=== PATIENT | female | born 1970 | race Caucasian/White ===

== ENCOUNTER 2020-04-12 22:17 | Inpatient (IN) | payer MEDICARE, MEDICAID ==
[~2020-04-12] VITALS: Ht 160 cm; Wt 79.4 kg
[~2020-04-12 22:17] MED LIST: ALBU05 NEB; ASPI-1497 PO; ATOR40TA70 PO; IBUP-2030 PO; LEVO125T8 PO; LORA2TAB2 PO; METF-414 PO; NAPR-681 PO; VENL75CA3 PO
[2020-04-12] MEDS ORDERED: NITROGLYCERIN 0.4MG TABLET SL SL PRN (22:45)
[2020-04-12] MEDS ORDERED: LABETALOL 5MG/ML SYR 20 MG/4 ML SYRINGE IV ONE (22:45)
[2020-04-12] MEDS ORDERED: IOHEXOL-350 100 ML BOTTLE ONE (23:30)
[2020-04-12 23:38] LABS: BASOPHILS % 0.4 % (0.0-2.0); EOSINOPHILS % 1.7 % (0.0-5.0); HEMATOCRIT. 37.5 % (36.0-48.0); HEMOGLOBIN. 12.9 g/dL (12.0-16.0); MEAN CORPUSCULAR HEMOGLOBIN 27.8 pg (28.0-32.0); MEAN CORPUSCULAR VOLUME 80.8 fL (81.0-99.0); MEAN PLATELET VOLUME 6.8 fl (7.4-10.4); NEUTROPHILS % 63.9 % (40.0-76.0); PLATELET 223 x1000/uL (130-400); RED BLOOD CELL COUNT 4.64 mill/uL (4.2-5.4)
[2020-04-12 23:45] LABS: CHLORIDE 111 mEq/L (98-107)
[2020-04-12 23:48] LABS: INR 0.9; PARTIAL THROMBOPLASTIN TIME 30.2 sec (23.4-31.0)
[2020-04-12 23:50] LABS: ETHANOL BLOOD < 10 mg/dL
[2020-04-12 23:53] LABS: LDL CHOLESTEROL 76 mg/dL (5-100)
[2020-04-13] MEDS ORDERED: ASPIRIN 325MG EC TABLET PO ONE (00:30)
[2020-04-13] MEDS ORDERED: HYDROCODONE/ACETAMINOPHEN 10/325MG TABLET PO SCH (04:30)
[2020-04-13] MEDS ORDERED: ACETAMINOPHEN 325MG TABLET PO PRN (08:00)
[2020-04-13] MEDS ORDERED: ONDANSETRON HCL 4MG/2ML INJ IV PRN (08:00)
[2020-04-13] MEDS: ENOXAPARIN 40MG/0.4ML SYR SUBCUT SCH (09:48)
[2020-04-13] MEDS ORDERED: KETOROLAC 30MG/ML VIAL IV NR (10:45)
[2020-04-13] MEDS ORDERED: KETOROLAC 30MG/ML VIAL IV PRN (10:45)
[2020-04-13 12:47] VITALS: BP 143/79
[2020-04-13 14:22] VITALS: BP 111/65
[2020-04-13 16:22] VITALS: BP 129/71
[2020-04-13 18:20] VITALS: BP 138/73
[2020-04-13 20:00] VITALS: BP 145/72
[2020-04-13] MEDS: HYDROCODONE/ACETAMINOPHEN 5/325MG TABLET PO PRN (21:34)
[2020-04-14] VITALS (7 sets, daily range): BP systolic 113–133; BP diastolic 39–73
[2020-04-14] MEDS: ASPIRIN 81MG TABLET PO SCH (08:22)
[2020-04-14] MEDS: ENOXAPARIN 40MG/0.4ML SYR SUBCUT SCH (08:22)
[2020-04-14 10:03] LABS: HEMATOCRIT 37.3 % (36.0-48.0); HEMOGLOBIN 12.4 g/dL (12.0-16.0); MEAN CORPUSCULAR VOLUME 81.2 fL (81.0-99.0); PLATELET 195 x1000/uL (130-400); RED CELL DISTRIBUTION WIDTH 13.8 % (11.6-14.6)
[2020-04-14 10:14] LABS: CHLORIDE 109 mEq/L (98-107)
[2020-04-14] MEDS: HYDROCODONE/ACETAMINOPHEN 5/325MG TABLET PO PRN ×2 (12:46→22:19)
[2020-04-14] MEDS: DIPHENHYDRAMINE 25MG CAPSULE PO PRN ×2 (13:01→22:17)
[2020-04-15] VITALS (10 sets, daily range): BP systolic 104–137; BP diastolic 59–85
[2020-04-15 06:41] LABS: BASOPHILS % 0.6 % (0.0-2.0); EOSINOPHILS % 3.1 % (0.0-5.0); HEMATOCRIT. 37.6 % (36.0-48.0); HEMOGLOBIN. 12.7 g/dL (12.0-16.0); LYMPHOCYTES % 35.8 % (20.0-50.0); MEAN CORPUSCULAR HEMOGLOBIN 27.4 pg (28.0-32.0); MEAN CORPUSCULAR VOLUME 81.2 fL (81.0-99.0); MEAN PLATELET VOLUME 7.5 fl (7.4-10.4); MONOCYTES % 8.4 % (2.0-8.0); NEUTROPHILS % 52.1 % (40.0-76.0); PLATELET 197 x1000/uL (130-400); RED BLOOD CELL COUNT 4.63 mill/uL (4.2-5.4); RED CELL DISTRIBUTION WIDTH 14.2 % (11.6-14.6)
[2020-04-15 06:52] LABS: CHLORIDE 108 mEq/L (98-107)
[2020-04-15] MEDS: ASPIRIN 81MG TABLET PO SCH (09:13)
[2020-04-15] MEDS: ENOXAPARIN 40MG/0.4ML SYR SUBCUT SCH (09:14)
[2020-04-15] MEDS: HYDROCODONE/ACETAMINOPHEN 5/325MG TABLET PO PRN (15:00)
[2020-04-15] MEDS: DIPHENHYDRAMINE 25MG CAPSULE PO PRN (15:03)
[2020-04-15] MEDS: ATORVASTATIN CALCIUM 10MG TABLET PO SCH (20:55)
[2020-04-16] VITALS (10 sets, daily range): BP systolic 117–157; BP diastolic 72–100
[2020-04-16] MEDS: LORAZEPAM 1MG TABLET PO PRN ×2 (00:38→21:06)
[2020-04-16 07:39] LABS: BASOPHILS % 0.2 % (0.0-2.0); EOSINOPHILS % 2.2 % (0.0-5.0); HEMATOCRIT. 38.1 % (36.0-48.0); HEMOGLOBIN. 12.7 g/dL (12.0-16.0); LYMPHOCYTES % 27.9 % (20.0-50.0); MEAN CORPUSCULAR HEMOGLOBIN 27.1 pg (28.0-32.0); MEAN CORPUSCULAR VOLUME 81.5 fL (81.0-99.0); MEAN PLATELET VOLUME 7.4 fl (7.4-10.4); MONOCYTES % 7.2 % (2.0-8.0); NEUTROPHILS % 62.5 % (40.0-76.0); PLATELET 196 x1000/uL (130-400); RED BLOOD CELL COUNT 4.68 mill/uL (4.2-5.4); RED CELL DISTRIBUTION WIDTH 13.5 % (11.6-14.6)
[2020-04-16 07:42] LABS: CHLORIDE 107 mEq/L (98-107)
[2020-04-16] MEDS: ASPIRIN 81MG TABLET PO SCH (10:31)
[2020-04-16] MEDS: CITALOPRAM HYDROBROMIDE 10MG TABLET PO SCH (10:31)
[2020-04-16] MEDS: ENOXAPARIN 40MG/0.4ML SYR SUBCUT SCH (10:48)
[2020-04-16] MEDS: BUTALBITAL/ACETAMINOPHEN/CAFFEINE 50/325/40MG TABLET PO PRN (15:21)
[2020-04-16] MEDS: DIPHENHYDRAMINE 25MG CAPSULE PO PRN (20:04)
[2020-04-16] MEDS: HYDROCODONE/ACETAMINOPHEN 5/325MG TABLET PO PRN (20:04)
[2020-04-16] MEDS: ATORVASTATIN CALCIUM 10MG TABLET PO SCH (21:06)
[2020-04-17] VITALS (10 sets, daily range): BP systolic 113–141; BP diastolic 55–92
[2020-04-17 07:07] LABS: BASOPHILS % 0.5 % (0.0-2.0); EOSINOPHILS % 2.2 % (0.0-5.0); HEMATOCRIT. 37.5 % (36.0-48.0); HEMOGLOBIN. 12.8 g/dL (12.0-16.0); LYMPHOCYTES % 29.4 % (20.0-50.0); MEAN CORPUSCULAR HEMOGLOBIN 27.3 pg (28.0-32.0); MEAN CORPUSCULAR VOLUME 80.3 fL (81.0-99.0); MEAN PLATELET VOLUME 7.2 fl (7.4-10.4); MONOCYTES % 7.1 % (2.0-8.0); NEUTROPHILS % 60.8 % (40.0-76.0); PLATELET 197 x1000/uL (130-400); RED BLOOD CELL COUNT 4.67 mill/uL (4.2-5.4); RED CELL DISTRIBUTION WIDTH 13.4 % (11.6-14.6)
[2020-04-17 07:20] LABS: CHLORIDE 108 mEq/L (98-107)
[2020-04-17 07:34] LABS: CREATINE KINASE 39 IU/L (26-192); T4 FREE 0.53 ng/dL (0.76-1.46)
[2020-04-17] MEDS: CITALOPRAM HYDROBROMIDE 10MG TABLET PO SCH (08:10)
[2020-04-17] MEDS: ASPIRIN 81MG TABLET PO SCH (08:10)
[2020-04-17] MEDS: ENOXAPARIN 40MG/0.4ML SYR SUBCUT SCH (08:10)
[2020-04-17 08:19] LABS: FOLIC ACID (FOLATE) SERUM > 20.00 ng/mL (>5.38); VITAMIN B12 SERUM > 2000.0 pg/mL (211-911)
[2020-04-17] MEDS ORDERED: LEVOTHYROXINE SODIUM 75MCG TABLET PO SCH (11:15)
[2020-04-17] MEDS: ATORVASTATIN CALCIUM 10MG TABLET PO SCH (20:05)
[2020-04-17] MEDS: BUTALBITAL/ACETAMINOPHEN/CAFFEINE 50/325/40MG TABLET PO PRN (20:08)
[2020-04-18 08:07] LABS: ESTRADIOL < 5.0 pg/mL (.); FOLICLE STIMULATING HORMONE 95.4 mIU/mL (.); LUTEINIZING HORMONE 51.8 mIU/mL (.); PROLACTIN 37.7 ng/mL (4.8-23.3); THYROID PEROXIDASE ANTIBODY < 9 IU/mL (0-34)
[2020-04-18] MEDS ORDERED: MULTIVITAMINS,THER W-MINERALS TABLET PO SCH (09:00)
[2020-04-18 13:06] LABS: C-PEPTIDE 2.3 ng/mL (1.1-4.4); INSULIN 5.4 uIU/mL (2.6-24.9)
[2020-04-20 13:10] LABS: PRO INSULIN 2.8 pmol/L (0.0-10.0)
[2020-04-21 17:07] LABS: 25-HYDROXY VITAMIN D3 33 ng/mL (.)
[2020-04-26] MEDS ORDERED: ASPI-1160 PO (17:31)
[2020-04-26] MEDS ORDERED: BISA10SU62 RC (17:31)
[2020-04-26] MEDS ORDERED: LEVO100T9 PO (17:31)
[2020-04-26] MEDS ORDERED: NAPR-681 PO (17:31)
[2020-04-26] MEDS ORDERED: DOCU250C14 MT (17:31)
== END 2020-04-17 22:07 | DRG 206 ==
LOC: ER 22:17 → 3WST 04-13 00:39 → ENRESERV 04-13 11:18
PROVIDERS: ADMIT Internal Medicine; ATTEND Internal Medicine
PROC: 4A00X4Z Measurement of Central Nervous Electrical Activity, External Approach (ICD-10-PCS; principal; 2020-04-17)
DX: M94.0 Chondrocostal junction syndrome [Tietze] (principal); G45.9 Transient cerebral ischemic attack, unspecified; G81.94 Hemiplegia, unspecified affecting left nondominant side; E11.9 Type 2 diabetes mellitus without complications; D72.819 Decreased white blood cell count, unspecified; E03.9 Hypothyroidism, unspecified; E66.9 Obesity, unspecified; E78.5 Hyperlipidemia, unspecified; E87.8 Other disorders of electrolyte and fluid balance, not elsewhere classified; F32.9 Major depressive disorder, single episode, unspecified; F41.9 Anxiety disorder, unspecified; G43.109 Migraine with aura, not intractable, without status migrainosus; I10 Essential (primary) hypertension; J45.909 Unspecified asthma, uncomplicated; K59.00 Constipation, unspecified; E78.00 Pure hypercholesterolemia, unspecified; Z20.822 Contact with and (suspected) exposure to COVID-19; Z86.73 Personal history of transient ischemic attack (TIA), and cerebral infarction without residual deficits; Z90.49 Acquired absence of other specified parts of digestive tract; Z98.1 Arthrodesis status; Z88.1 Allergy status to other antibiotic agents; Z88.8 Allergy status to other drugs, medicaments and biological substances; Z79.84 Long term (current) use of oral hypoglycemic drugs; Z79.82 Long term (current) use of aspirin; Z79.899 Other long term (current) drug therapy; Z79.890 Hormone replacement therapy; Z68.31 Body mass index [BMI] 31.0-31.9, adult
CPT/HCPCS: 36415; 70496; 70498; 70551; 71045; 72141; 80048; 80053; 80320; 82024; 82306; 82533; 82550; 82607; 82670; 82746; 82947; 82962; 83001; 83002; 83036; 83525; 83721; 83880; 84146; 84206; 84439; 84443; 84480; 84484; 84681; 85025; 85027; 86376; 87426; 93005; 93306; 95816; 96374; 97116; 97163; 97166; 97530; 97535; 99291; J1650; J1885; J2405; J3490; Q0163; Q9967; G0480

== ENCOUNTER 2021-12-23 23:29 | Emergency (ER) | payer MEDICARE, MEDICAID ==
[~2021-12-23] VITALS: Ht 160 cm; Wt 81.0 kg
[~2021-12-23 23:29] MED LIST changes: +ASPI-1160 PO; +BISA10SU62 RC; +DOCU250C14 MT; +LEVO100T9 PO; -METF-414 PO
[2021-12-24] MEDS ORDERED: KETOROLAC 30MG/ML VIAL IV STA (04:22)
[2021-12-24] MEDS ORDERED: SODIUM CHLORIDE 0.9% 1,000 ML IV ONE (04:30)
[2021-12-24 05:01] LABS: BASOPHILS % 0.4 % (0.0-2.0); HEMATOCRIT. 41.8 % (36.0-48.0); HEMOGLOBIN. 13.5 g/dL (12.0-16.0); LYMPHOCYTES % 28.9 % (20.0-50.0); MEAN CORPUSCULAR HEMOGLOBIN 27.3 pg (28.0-32.0); MEAN CORPUSCULAR VOLUME 84.4 fL (81.0-99.0); MEAN PLATELET VOLUME 6.9 fl (7.4-10.4); NEUTROPHILS % 62.7 % (40.0-76.0); PLATELET 258 x1000/uL (130-400); RED BLOOD CELL COUNT 4.95 mill/uL (4.2-5.4); RED CELL DISTRIBUTION WIDTH 14.6 % (11.6-14.6)
[2021-12-24 05:10] LABS: CHLORIDE 109 mEq/L (98-107)
[2021-12-24] MEDS ORDERED: ONDANSETRON HCL 4MG/2ML INJ IV ONE (05:30)
[2021-12-24] MEDS ORDERED: MORPHINE SULFATE 4 MG/ML CPJ (NOT FOR IM USE) IV ONE (05:30)
[2021-12-24 07:13] LABS: CLARITY URINE CLEAR (CLEAR); COLOR URINE YELLOW (YELLOW); KETONES URINE NEGATIVE (NEGATIVE); LEUKOCYTE ESTERASE URINE 2+ (NEGATIVE); NITRITE URINE NEGATIVE (NEGATIVE); OCCULT BLOOD URINE TRACE (NEGATIVE); PH URINE 5.5 (4.5-8.0); PROTEIN URINE NEGATIVE (NEGATIVE); UROBILINOGEN URINE 0.2 E.U./dL (0.2-1.0)
[2021-12-24] MEDS ORDERED: SULF1TAB48 MT (07:22)
[2021-12-24] MEDS ORDERED: IBUP-2029 MT (07:22)
[2021-12-24] MEDS ORDERED: IBUP-2028 MT ×2 (07:22)
[2021-12-24] MEDS ORDERED: HYDR-4001 MT ×2 (07:22→07:29)
[2021-12-24 08:51] VITALS: BP 126/75
== END 2021-12-24 08:52 | disposition home or self-care (01) ==
LOC: ER 23:29
DX: N10 Acute pyelonephritis (principal); F32.A Depression, unspecified; E11.9 Type 2 diabetes mellitus without complications; E78.00 Pure hypercholesterolemia, unspecified; I10 Essential (primary) hypertension; Z90.49 Acquired absence of other specified parts of digestive tract; Z79.82 Long term (current) use of aspirin; Z88.3 Allergy status to other anti-infective agents
CPT/HCPCS: 36415; 74176; 80053; 81003; 81025; 83690; 85025; 96361; 96374; 96375; 99284; J1885; J2270; J2405; J7030

== ENCOUNTER 2022-01-01 21:16 | Emergency (ER) | payer MEDICARE, MEDICAID ==
[~2022-01-01] VITALS: Ht 160 cm; Wt 81.3 kg
[~2022-01-01 21:16] MED LIST changes: +HYDR-4001 MT; +IBUP-2029 MT; +SULF1TAB48 MT
[2022-01-02] MEDS ORDERED: ACETAMINOPHEN 325MG TABLET PO STA (03:56)
[2022-01-02] MEDS ORDERED: SODIUM CHLORIDE 0.9% 1,000 ML IV ONE (04:00)
[2022-01-02 04:37] LABS: BASOPHILS % 0.4 % (0.0-2.0); EOSINOPHILS % 2.5 % (0.0-5.0); HEMATOCRIT. 42.8 % (36.0-48.0); HEMOGLOBIN. 14.2 g/dL (12.0-16.0); LYMPHOCYTES % 30.8 % (20.0-50.0); MEAN CORPUSCULAR HEMOGLOBIN 28.2 pg (28.0-32.0); MONOCYTES % 5.4 % (2.0-8.0); NEUTROPHILS % 60.9 % (40.0-76.0); PLATELET 287 x1000/uL (130-400); RED BLOOD CELL COUNT 5.04 mill/uL (4.2-5.4); RED CELL DISTRIBUTION WIDTH 14.2 % (11.6-14.6)
[2022-01-02 04:39] LABS: CLARITY URINE CLOUDY (CLEAR); COLOR URINE YELLOW (YELLOW); KETONES URINE NEGATIVE (NEGATIVE); LEUKOCYTE ESTERASE URINE 2+ (NEGATIVE); NITRITE URINE NEGATIVE (NEGATIVE); OCCULT BLOOD URINE TRACE (NEGATIVE); PROTEIN URINE TRACE (NEGATIVE); SPECIFIC GRAVITY URINE 1.022 (1.005-1.030); UROBILINOGEN URINE 0.2 E.U./dL (0.2-1.0)
[2022-01-02 04:45] LABS: CHLORIDE 108 mEq/L (98-107)
[2022-01-02] MEDS ORDERED: KETOROLAC 15MG/ML VIAL IV NR (05:45)
[2022-01-02] MEDS ORDERED: CEPH500C2 MT (05:48)
[2022-01-02] MEDS ORDERED: BACL-141 MT (05:48)
[2022-01-02] MEDS ORDERED: IBUP-2029 MT (05:48)
[2022-01-02 06:00] VITALS: BP 135/63
[2022-01-02] MEDS ORDERED: CEPHALEXIN 250MG CAPSULE PO ONE (06:00)
[2022-01-02 06:14] LABS: HCG SCREEN NEGATIVE
== END 2022-01-02 06:22 | disposition home or self-care (01) ==
LOC: ER 21:16
DX: R10.31 Right lower quadrant pain (principal); R11.2 Nausea with vomiting, unspecified; F32.9 Major depressive disorder, single episode, unspecified; E11.9 Type 2 diabetes mellitus without complications; E78.00 Pure hypercholesterolemia, unspecified; I10 Essential (primary) hypertension; Z88.3 Allergy status to other anti-infective agents; Z88.8 Allergy status to other drugs, medicaments and biological substances; Z79.82 Long term (current) use of aspirin; Z90.49 Acquired absence of other specified parts of digestive tract; Z98.890 Other specified postprocedural states
CPT/HCPCS: 36415; 74176; 80053; 81003; 83690; 84703; 85025; 87086; 96361; 96374; 99284; J1885; J7030

== ENCOUNTER 2022-08-23 19:22 | Emergency (ER) | payer MEDICARE, MEDICAID ==
[~2022-08-23] VITALS: Ht 162.6 cm; Wt 76.7 kg
[~2022-08-23 19:22] MED LIST changes: +BACL-141 MT; +CEPH500C2 MT
[2022-08-23] MEDS ORDERED: SODIUM CHLORIDE 0.9% 1,000 ML IV ONE (20:15)
[2022-08-23] MEDS ORDERED: DIPHENHYDRAMINE 50MG/ML VIAL IV ONE (20:15)
[2022-08-23] MEDS ORDERED: METOCLOPRAMIDE HCL 10MG/2ML VIAL IV ONE (20:15)
[2022-08-23 20:17] LABS: CHLORIDE 110 mEq/L (98-107)
[2022-08-23 20:19] LABS: BASOPHILS % 0.5 % (0.0-2.0); EOSINOPHILS % 2.2 % (0.0-5.0); HEMATOCRIT. 41.6 % (36.0-48.0); LYMPHOCYTES % 27.7 % (20.0-50.0); MEAN CORPUSCULAR HEMOGLOBIN 28.3 pg (28.0-32.0); MEAN CORPUSCULAR VOLUME 83.9 fL (81.0-99.0); MEAN PLATELET VOLUME 7.2 fl (7.4-10.4); MONOCYTES % 6.8 % (2.0-8.0); NEUTROPHILS % 62.8 % (40.0-76.0); PLATELET 292 x1000/uL (130-400); RED BLOOD CELL COUNT 4.96 mill/uL (4.2-5.4); RED CELL DISTRIBUTION WIDTH 13.7 % (11.6-14.6)
[2022-08-23 20:27] LABS: ETHANOL BLOOD < 10 mg/dL; PROTHROMBIN TIME 10.3 sec (9.6-11.0)
[2022-08-23 20:48] LABS: CLARITY URINE CLEAR (CLEAR); COLOR URINE YELLOW (YELLOW); KETONES URINE NEGATIVE (NEGATIVE); LEUKOCYTE ESTERASE URINE NEGATIVE (NEGATIVE); NITRITE URINE NEGATIVE (NEGATIVE); OCCULT BLOOD URINE NEGATIVE (NEGATIVE); PH URINE 7.5 (4.5-8.0); PROTEIN URINE NEGATIVE (NEGATIVE); SPECIFIC GRAVITY URINE 1.054 (1.005-1.030); UROBILINOGEN URINE 0.2 E.U./dL (0.2-1.0)
[2022-08-23] MEDS ORDERED: ACET-2708 MT (20:55)
[2022-08-23] MEDS ORDERED: METO-293 MT (20:55)
[2022-08-23 20:59] LABS: *AMPHETAMINES SCREEN URINE NEGATIVE (NEGATIVE); *BARBITURATES SCREEN URINE NEGATIVE (NEGATIVE); *BENZODIAZEPINES SCREEN URINE NEGATIVE (NEGATIVE); *COCAINE SCREEN URINE NEGATIVE (NEGATIVE); CANNABINOID URINE SCREEN NEGATIVE (NEGATIVE); METHADONE URINE SCREEN NEGATIVE (NEGATIVE); OPIATES URINE SCREEN NEGATIVE (NEGATIVE); PHENCYCLIDINE URINE SCREEN NEGATIVE (NEGATIVE)
[2022-08-23 22:00] VITALS: BP 141/62
[2022-08-24] MEDS ORDERED: IOHEXOL-350 100 ML BOTTLE ONE (07:02)
== END 2022-08-23 22:30 | disposition home or self-care (01) ==
LOC: ER 19:22
DX: R51.9 Headache, unspecified (principal); F45.0 Somatization disorder; E78.00 Pure hypercholesterolemia, unspecified; E11.9 Type 2 diabetes mellitus without complications; I25.2 Old myocardial infarction; I10 Essential (primary) hypertension; Z88.1 Allergy status to other antibiotic agents; Z88.8 Allergy status to other drugs, medicaments and biological substances; Z79.899 Other long term (current) drug therapy; Z90.49 Acquired absence of other specified parts of digestive tract; Z86.73 Personal history of transient ischemic attack (TIA), and cerebral infarction without residual deficits
CPT/HCPCS: 36415; 70450; 70496; 70498; 71045; 80053; 80305; 80320; 81003; 82962; 84484; 85025; 85610; 93005; 96361; 96374; 96375; 99285; J1200; J2765; J7030; Q9967; G0480

== ENCOUNTER 2024-07-01 19:49 | Emergency (ER) | payer BC, MEDICAID ==
[~2024-07-01] VITALS: Ht 160 cm; Wt 63.0 kg
[~2024-07-01 19:49] MED LIST changes: +ACET-2708 MT; +METO-293 MT; -SULF1TAB48 MT; +TUSSL MT; -VENL75CA3 PO; +VENL75CA4 PO
[2024-07-01 19:53] VITALS: O2SAT 100
[2024-07-01 20:46] LABS: POTASSIUM 3.7 mEq/L (3.5-5.1)
[2024-07-01 20:47] LABS: CALCIUM 10.5 mg/dL (8.7-10.4)
[2024-07-01 20:48] LABS: BASOPHILS % 0.3 % (0.0-2.0); EOSINOPHILS % 0.8 % (0.0-5.0); HEMATOCRIT. 41.9 % (36.0-48.0); HEMOGLOBIN. 13.9 g/dL (12.0-16.0); LYMPHOCYTES % 11.5 % (20.0-50.0); MEAN CORPUSCULAR HEMOGLOBIN 27.7 pg (28.0-32.0); MEAN CORPUSCULAR HGB CONC 33.2 g/dL (31.0-37.0); MEAN CORPUSCULAR VOLUME 83.4 fL (81.0-99.0); MEAN PLATELET VOLUME 7.3 fl (7.4-10.4); MONOCYTES % 4.3 % (2.0-8.0); NEUTROPHILS % 83.1 % (40.0-76.0); PLATELET 253 x1000/uL (130-400); RED BLOOD CELL COUNT 5.02 mill/uL (4.2-5.4); RED CELL DISTRIBUTION WIDTH 12.9 % (11.6-14.6); WHITE BLOOD COUNT 8.9 x1000/uL (4.5-11.0)
[2024-07-01] MEDS: KETOROLAC 30MG/ML VIAL IV STA (22:38)
[2024-07-02] MEDS: KETOROLAC 15MG/ML VIAL IV ONE (01:09)
[2024-07-02 03:27] VITALS: BP 133/73; PULSE 78; RESP 14; TEMP 37; O2SAT 99
== END 2024-07-02 03:41 | disposition home or self-care (01) ==
LOC: ER 19:49
DX: I25.2 Old myocardial infarction (principal); I10 Essential (primary) hypertension; E11.9 Type 2 diabetes mellitus without complications; Z88.5 Allergy status to narcotic agent; Z79.82 Long term (current) use of aspirin; Z91.018 Allergy to other foods; Z88.1 Allergy status to other antibiotic agents; Z79.52 Long term (current) use of systemic steroids; Z90.49 Acquired absence of other specified parts of digestive tract; Z79.899 Other long term (current) drug therapy; Z86.39 Personal history of other endocrine, nutritional and metabolic disease
CPT/HCPCS: 99285; 70450; 80048; 85025; 36415; 93005; 96374; J1885

== ENCOUNTER 2025-03-28 12:58 | Emergency (ER) | payer BC, MEDICAID ==
[~2025-03-28] VITALS: Ht 160 cm; Wt 60.0 kg
[~2025-03-28 12:58] MED LIST changes: +IBUP-1455 MT; -IBUP-2029 MT
[2025-03-28 13:03] VITALS: O2SAT 99
[2025-03-28] MEDS ORDERED: IBUPROFEN 600MG TABLET PO NR (13:45)
[2025-03-28] MEDS ORDERED: KETOROLAC 15MG/ML VIAL IV ONE (15:45)
[2025-03-28] MEDS ORDERED: IBUPROFEN 600MG TABLET PO ONE (15:45)
[2025-03-28] MEDS ORDERED: KETOROLAC 15MG/ML VIAL IV NR (15:45)
[2025-03-28 16:00] LABS: BG DEOXYHEMOGLOBIN 20.1 % (0.0-5.0)
[2025-03-28 16:04] LABS: BASOPHILS % 0.4 % (0.0-2.0); EOSINOPHILS % 0.9 % (0.0-5.0); HEMATOCRIT. 39.2 % (36.0-48.0); HEMOGLOBIN. 12.9 g/dL (12.0-16.0); LYMPHOCYTES % 18.2 % (20.0-50.0); MEAN PLATELET VOLUME 6.7 fl (7.4-10.4); MONOCYTES % 2.7 % (2.0-8.0); NEUTROPHILS % 77.8 % (40.0-76.0); PLATELET 259 x1000/uL (130-400); RED BLOOD CELL COUNT 4.76 mill/uL (4.2-5.4); RED CELL DISTRIBUTION WIDTH 14.1 % (11.6-14.6)
[2025-03-28 16:24] LABS: CREATININE 0.8 mg/dL (0.6-1.0)
[2025-03-28 16:25] LABS: UREA NITROGEN BLOOD 11 mg/dL (9-23)
[2025-03-28 16:26] LABS: ASPARTATE AMINOTRANSFERASE 17 IU/L (<34); PROTEIN TOTAL 6.7 g/dL (6.0-8.3)
[2025-03-28 16:27] LABS: BILIRUBIN DIRECT 0.1 mg/dL (<=3.0); BILIRUBIN TOTAL 0.4 mg/dL (0.1-1.0)
[2025-03-28] MEDS ORDERED: METH-653 MT (17:26)
[2025-03-28] MEDS: LIDOCAINE 5% PATCH TOP SCH (17:35)
[2025-03-28] MEDS: METHOCARBAMOL 500MG TABLET PO ONE (17:36)
[2025-03-28] MEDS: SODIUM CHLORIDE 0.9% 1,000 ML IV ONE (17:36)
[2025-03-28] MEDS: IBUPROFEN 600MG TABLET PO NR (18:31)
[2025-03-28] MEDS: KETOROLAC 15MG/ML VIAL IV NR (18:31)
[2025-03-28 18:32] VITALS: BP 152/89; PULSE 69; RESP 13; TEMP 36.8; O2SAT 100
== END 2025-03-28 18:30 | disposition home or self-care (01) ==
LOC: ER 12:58 → CANBEDREQ 17:29 → ER 18:30
DX: R10.9 Unspecified abdominal pain (principal); M54.9 Dorsalgia, unspecified; R11.2 Nausea with vomiting, unspecified; E03.9 Hypothyroidism, unspecified; E11.9 Type 2 diabetes mellitus without complications; I10 Essential (primary) hypertension; Z79.82 Long term (current) use of aspirin; Z88.1 Allergy status to other antibiotic agents; Z88.5 Allergy status to narcotic agent; Z90.49 Acquired absence of other specified parts of digestive tract; Z79.899 Other long term (current) drug therapy
CPT/HCPCS: 99291; 74176; 96360; 80076; 80048; 81025; 83690; 83735; 85025; 36415; 82375; 82803; J7030; A4606; J1885